=== PATIENT | male | born 1985 ===

== ENCOUNTER 2018-08-09 08:28 | Emergency (ER) | payer MEDICAID, OTHER ==
[2018-08-09 08:28] VITALS: BMI 23.9
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
[2018-08-09 09:01] VITALS: TEMP 98
[2018-08-09 10:28] VITALS: BP 108/60; PULSE 70; RESP 16; O2SAT 97
--- NOTE | 2018-08-09 11:01 | RAD ---
Date of service: 08/09/2018 PROCEDURE: Radiographs of the Lumbar Spine. HISTORY: right radicular pain COMPARISON: Lumbar spine MRI performed without and with IV contrast on 05/04/17 FINDINGS: BONES: Alignment appears satisfactory. No listhesis. No acute displaced fracture identified. DISC SPACES: Unremarkable. OTHER FINDINGS: None. IMPRESSION: No acute displaced fracture or subluxation identified.
== END 2018-08-09 10:27 | disposition home or self-care (01) ==
LOC: ED 08:28
DX: M54.17 Radiculopathy, lumbosacral region (principal)
CPT/HCPCS: 72110; 96372; 99283; J1100; J1885